=== PATIENT | female | born 1985 | race Caucasian/White ===

== ENCOUNTER 2023-11-30 13:40 | Emergency (ER) | payer SELFPAY ==
[2023-11-30 13:42] VITALS: BP 154/108; PULSE 114; RESP 16; TEMP 36.7; O2SAT 98; BMI 31.6
[2023-11-30 14:00] VITALS: BP 150/94; PULSE 100; O2SAT 96
--- NOTE | 2023-11-30 14:08 | PC.NURSE ---
PT PROVIDED WARM BLANKET, CALL LIGHT WITHIN REACH
--- NOTE | 2023-11-30 14:12 | PC.NURSE ---
DR HERRERA AT BEDSIDE
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
[2023-11-30 14:15] VITALS: BP 106/82; PULSE 96; O2SAT 97
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
[2023-11-30 14:21] VITALS: BP 119/81; PULSE 97; O2SAT 99
[2023-11-30] MEDS: ACETAMINOPHEN 500MG TAB 1000 MG PO (14:28)
[2023-11-30 14:30] VITALS: BP 112/79; PULSE 99; O2SAT 95
--- NOTE | 2023-11-30 14:34 | PC.NURSE ---
XR AT BEDSIDE
--- NOTE | 2023-11-30 15:09 | PC.NURSE ---
Pt placed in a orthopedic boot. Pt given instructions on care. CR
[2023-11-30 15:11] VITALS: BP 112/79; PULSE 99; RESP 16; TEMP 36.7; O2SAT 95
== END 2023-11-30 15:12 | disposition home or self-care (01) ==
PROVIDERS: Emergency Provider Student in an Organized Health Care Education/Training Program
DX: S97.81XA Crushing injury of right foot, initial encounter (principal); W20.8XXA Other cause of strike by thrown, projected or falling object, initial encounter
CPT/HCPCS: 73610; 73630; 99283